=== PATIENT | male | born 1995 | race African-American/Black ===

== ENCOUNTER 2017-02-11 16:20 | Emergency (ER) | payer OTHER, SELFPAY ==
[~2017-02-11] VITALS: Ht 170.2 cm; Wt 63.5 kg
[2017-02-11] MEDS ORDERED: NORCO, ANEXSIA 5/325MG TABLET (HYDROcodone/ACETAMINOPHEN) PO ONE (17:00)
[2017-02-11] MEDS ORDERED: NORCOTAB PO (19:19)
[2017-02-11 19:27] VITALS: BP 153/88
== END 2017-02-11 19:37 | disposition home or self-care (01) ==
LOC: M ED 16:20
DX: S62.307A Unspecified fracture of fifth metacarpal bone, left hand, initial encounter for closed fracture (principal); W22.8XXA Striking against or struck by other objects, initial encounter; Y92.018 Other place in single-family (private) house as the place of occurrence of the external cause; Y93.89 Activity, other specified; Y99.8 Other external cause status; Z91.018 Allergy to other foods; F17.210 Nicotine dependence, cigarettes, uncomplicated

== ENCOUNTER → 2017-02-11 | Outpatient (CLI) | payer OTHER ==
[~2017-02-11] MED LIST: NORCOTAB PO
--- NOTE | 2017-02-11 15:40 | REP ---
LEFT HAND, FOUR VIEWS: HISTORY: Pain. There is a fracture of the head of the fifth metacarpal. There is anterior and lateral displacement of the distal fracture fragment. There is no dislocation. The joint spaces are normal in appearance. IMPRESSION: Fracture of the head of the fifth metacarpal. Signed by Elias Begum MD 02/11/2017 03:44 P
== END ==
LOC: M WUC 14:27
PROVIDERS: ATTEND Physician Assistant
DX: S62.337A Displaced fracture of neck of fifth metacarpal bone, left hand, initial encounter for closed fracture (principal); Z11.3 Encounter for screening for infections with a predominantly sexual mode of transmission; X58.XXXA Exposure to other specified factors, initial encounter; Y93.9 Activity, unspecified; Y92.9 Unspecified place or not applicable; Y99.8 Other external cause status

== ENCOUNTER 2018-12-11 08:55 | Emergency (ER) | payer OTHER ==
[~2018-12-11] VITALS: Ht 170.2 cm; Wt 65.2 kg
[~2018-12-11 08:55] MED LIST changes: +HYDR-3715 PO; -NORCOTAB PO
[2018-12-11] MEDS ORDERED: ADACEL/BOOSTRIX VACCINE (DIPHTH/PERTUSS/ACELL/TETANUS)0.5ML SYR (90715) IM ONE (09:45)
[2018-12-11] MEDS ORDERED: KEFL500C17 PO (10:23)
[2018-12-11] MEDS ORDERED: IBUPROFEN 600 MG TAB PO ONE (10:30)
[2018-12-11 11:13] VITALS: BP 115/73
--- NOTE | 2018-12-11 14:19 | REP ---
RIGHT THUMB: 12/11/2018. Clinical history. Right thumb pain. Laceration. Findings: No prior study. Five views are provided. There is no radiopaque foreign body or bone injury appears to be some soft tissue swelling in the region of the first MCP joint. No subcutaneous emphysema identified. The remainder of the visualized bones also intact. IMPRESSION: 1. Soft tissue swelling MCP joint without foreign body, focal bone lesion or subcutaneous emphysema. Electronically Signed by Sebastian Flores MD 12/11/2018 08:36 P
== END 2018-12-11 11:19 | disposition home or self-care (01) ==
LOC: M ED 08:55
DX: S61.011A Laceration without foreign body of right thumb without damage to nail, initial encounter (principal); W26.0XXA Contact with knife, initial encounter; Y92.018 Other place in single-family (private) house as the place of occurrence of the external cause; Z91.018 Allergy to other foods